=== PATIENT | female | born 1960 | race Caucasian/White ===

== ENCOUNTER 2021-07-27 18:21 | Emergency (ER) | payer BC, MEDICAID ==
[~2021-07-27] VITALS: Ht 149.9 cm; Wt 75.0 kg
[~2021-07-27 18:21] MED LIST: LIDOcaine 1% W/epiNEPHrine 1:100,000 20ml vial ONE
[2021-07-27] MEDS ORDERED: morphine 4 MG/ML inj SYRINge IV ONE ×2 (18:30→20:05)
[2021-07-27] MEDS ORDERED: ondansetron 4mg rapidly disintigrating tab PO ONE (18:30)
[2021-07-27] MEDS ORDERED: ondansetron/PF 4mg/2ml inj IV ONE (18:30)
[2021-07-27] MEDS ORDERED: acetaminophen 325mg tablet PO ONE (18:30)
[2021-07-27] MEDS ORDERED: ketorolac trometh. 30mg/ml inj. IV ONE (18:30)
[2021-07-27] MEDS ORDERED: propofol 10mg/ml 20ml vial IV ONE (19:45)
[2021-07-27 19:54] LABS: ALANINE AMINOTRANSFERASE 21 U/L (12-78); ALBUMIN/GLOBULIN RATIO 1.3 (1.1-1.5); ALKALINE PHOSPHATASE 82 IU/L (46-116); ANION GAP 11 (8-16); ASPARTATE AMINO TRANSFERASE 20 U/L (10-37); BILIRUBIN,TOTAL 0.2 MG/DL (0.1-1.0); BLOOD UREA NITROGEN 34 MG/DL (7-18); BUN/CREATININE RATIO 38.2 (6.6-38.0); CALCIUM 9.8 MG/DL (8.5-10.1); CHLORIDE 106 MMOL/L (99-107); CREATININE 0.89 MG/DL (0.40-0.90); GLUCOSE 113 MG/DL (70-104); POTASSIUM 4.4 MMOL/L (3.5-5.1); SODIUM 141 MMOL/L (135-145); TOTAL CARBON DIOXIDE 23.6 MMOL/L (24-32); TOTAL PROTEIN 7.2 G/DL (6.4-8.2); eGFR 64 ML/MIN
[2021-07-27 20:10] LABS: BASOPHILS # (AUTO) 0.1 X10'3 (0-0.2); EOSINOPHILS # (AUTO) 0.2 X10'3 (0-0.9); EOSINOPHILS % (AUTO) 1.3 % (0-6); HEMATOCRIT 38.2 % (35.0-45.0); HEMOGLOBIN 13.1 g/dl (12.0-16.0); LYMPHOCYTES % (AUTO) 24.8 % (21-51); MEAN CORPUSCULAR HEMOGLOBIN 28.3 PG (27.0-31.0); MEAN CORPUSCULAR HGB CONC 34.4 g/dL (33.0-36.5); MEAN CORPUSCULAR VOLUME 82.3 FL (78-98); MEAN PLATELET VOLUME 6.9 FL (7.4-10.4); MONOCYTES # (AUTO) 0.9 X10'3 (0-0.9); MONOCYTES % (AUTO) 7.8 % (2-12); NEUTROPHILS # (AUTO) 7.8 X10'3 (1.8-7.7); NEUTROPHILS % (AUTO) 65.1 % (42-75); PLATELET COUNT 270 X10'3 (140-440); RED BLOOD COUNT 4.64 X10'6 (4.20-5.60); RED CELL DISTRIBUTION WIDTH 12.8 % (11.5-14.5); WHITE BLOOD COUNT 11.9 X10'3 (4.5-11.0)
[2021-07-27] MEDS ORDERED: HYDR-3965 PO (20:43)
[2021-07-27 21:46] VITALS: BP 140/65
== END 2021-07-27 21:46 | disposition home or self-care (01) ==
LOC: ER 18:22
DX: S89.391A Other physeal fracture of lower end of right fibula, initial encounter for closed fracture (principal); S93.04XA Dislocation of right ankle joint, initial encounter; Z79.899 Other long term (current) drug therapy; W19.XXXA Unspecified fall, initial encounter; Y93.89 Activity, other specified; Y92.89 Other specified places as the place of occurrence of the external cause; Y99.8 Other external cause status
CPT/HCPCS: 20552; 27818; 36415; 73600; 73610; 80053; 85025; 93005; 94799; 96374; 96375; 96376; 99285; J1885; J2270; J2405; J3490; 94760

== ENCOUNTER 2021-08-19 09:22 | Inpatient (IN) | payer BC, MEDICAID ==
[2021-08-18 15:38] LABS: BASOPHILS # (AUTO) 0.1 X10'3 (0-0.2); EOSINOPHILS # (AUTO) 0.3 X10'3 (0-0.9); EOSINOPHILS % (AUTO) 2.7 % (0-6); LYMPHOCYTES # (AUTO) 2.5 X10'3 (1.1-4.8); LYMPHOCYTES % (AUTO) 24.5 % (21-51); MEAN CORPUSCULAR HEMOGLOBIN 27.4 PG (27.0-31.0); MEAN CORPUSCULAR HGB CONC 33.3 g/dL (33.0-36.5); MEAN CORPUSCULAR VOLUME 82.4 FL (78-98); MONOCYTES # (AUTO) 0.8 X10'3 (0-0.9); MONOCYTES % (AUTO) 8.1 % (2-12); NEUTROPHILS # (AUTO) 6.4 X10'3 (1.8-7.7); NEUTROPHILS % (AUTO) 63.7 % (42-75); PRE OP HEMATOCRIT 39.8 % (35.0-45.0); PRE OP HEMOGLOBIN 13.3 g/dL (12.0-16.0); PRE OP PLATELET COUNT 300 X10'3 (140-440); RED BLOOD COUNT 4.83 X10'6 (4.20-5.60); RED CELL DISTRIBUTION WIDTH 13.6 % (11.5-14.5)
[2021-08-18 16:01] LABS: ALANINE AMINOTRANSFERASE 21 U/L (12-78); ALBUMIN 3.8 G/DL (3.4-5.0); ALBUMIN/GLOBULIN RATIO 1.2 (1.1-1.5); ALKALINE PHOSPHATASE 82 IU/L (46-116); ANION GAP 9 (8-16); ASPARTATE AMINO TRANSFERASE 19 U/L (10-37); BILIRUBIN,TOTAL 0.3 MG/DL (0.1-1.0); BLOOD UREA NITROGEN 27 MG/DL (7-18); BUN/CREATININE RATIO 26.7 (6.6-38.0); CALCIUM 9.7 MG/DL (8.5-10.1); CHLORIDE 105 MMOL/L (99-107); CREATININE 1.01 MG/DL (0.40-0.90); GLUCOSE 120 MG/DL (70-104); POTASSIUM 4.1 MMOL/L (3.5-5.1); SODIUM 142 MMOL/L (135-145); TOTAL CARBON DIOXIDE 28.1 MMOL/L (24-32); TOTAL PROTEIN 6.9 G/DL (6.4-8.2); eGFR 56 ML/MIN
[~2021-08-19] VITALS: Ht 149.9 cm; Wt 81.3 kg
[2021-08-19] VITALS (18 sets, daily range): BP systolic 108–149; BP diastolic 56–83
[~2021-08-19 09:22] MED LIST changes: +ASPI-611 PO; +BACL10TA2 PO; +BUDE10.27; +CEPH500C82 PO; +CYCL1DRO2 EACHEYE; +DICL100G30 TOP; +DULO30CA52 PO; +HYDR-3686 PO; +HYDR-3965 PO; +HYDR-3973; +IBUP-1984 PO; +LEVO75TA7 PO; -LIDOcaine 1% W/epiNEPHrine 1:100,000 20ml vial ONE; +LOSA100T57 PO; +MECL-159 PO; +ROSU10TA28 PO; +albuterol 2.5 MG/3 ML nebule NEB ONE; +cefazolin/dext.iso 2gm/50ml IV ONE; +famotidine 20mg tablet PO ONE; +sevoflurane 250ml liquid IH ONE
[2021-08-19] MEDS: ringers solution, lacted 1,000 ML IV SCH (11:12)
[2021-08-19] MEDS ORDERED: fentaNYL/PF 50MCG/1 ML 2ML syringe ONE (12:15)
[2021-08-19] MEDS ORDERED: meperidine/PF 25mg/ml syringe IV PRN (12:25)
[2021-08-19] MEDS ORDERED: acetaminophen 1,000mg/100ml IV 100 ML IV PRN (12:25)
[2021-08-19] MEDS ORDERED: ringers solution, lacted 1,000 ML IV SCH (12:25)
[2021-08-19] MEDS ORDERED: HYDROmorphone/PF 0.2 MG/ML SYRINGE IV PRN ×2 (12:25)
[2021-08-19] MEDS ORDERED: labetalol 20mg/4ml (5mg/ml) syringe IV PRN (12:25)
[2021-08-19] MEDS ORDERED: morphine 4 MG/ML inj SYRINge IV PRN (12:25)
[2021-08-19] MEDS ORDERED: proCHLORperazine 10 MG/2 ml inj IV PRN (12:25)
[2021-08-19] MEDS ORDERED: ondansetron/PF 4mg/2ml inj IV PRN (12:25)
[2021-08-19] MEDS ORDERED: morphine 2 MG/ML inj. syringe IV PRN (12:25)
[2021-08-19] MEDS ORDERED: hydrALAZINE 20mg/ml inj. IV PRN (12:25)
[2021-08-19] MEDS ORDERED: ROPIVAcaine 0.2% (10 MG/5 ML) BOLUS INJECTION POPLITEAL PRN (12:30)
[2021-08-19] MEDS ORDERED: midazolam 1 mg/ML 2ml injection ONE (13:41)
[2021-08-19] MEDS ORDERED: ROPIVAcaine 0.5% (5mg/ml) 30ml vial ONE (14:03)
[2021-08-19] MEDS ORDERED: 0.9 % SODIUM CHLORIDE 10 ML VIAL ONE ×3 (14:03)
[2021-08-19] MEDS ORDERED: propofol inj 20 ML IV ONE (14:03)
[2021-08-19] MEDS ORDERED: LIDOcaine 2% (20mg/ml) 5ml vial ONE (14:04)
[2021-08-19] MEDS ORDERED: ePHEDrine 50MG/ML INJ. ONE (14:04)
[2021-08-19] MEDS ORDERED: dexamethasone sod phosphate 4mg/ml inj. ONE (14:05)
[2021-08-19] MEDS ORDERED: ondansetron/PF 4mg/2ml inj ONE (14:05)
[2021-08-19] MEDS ORDERED: bacitracin 15gm ointment TP ONE (15:22)
[2021-08-19] MEDS ORDERED: DICLOFENAC SODIUM TP PRN (16:05)
[2021-08-19] MEDS ORDERED: meclizine 12.5mg tablet PO PRN (16:05)
[2021-08-19] MEDS: ROPIVAcaine 0.2%/PF PUMP/bolus 545 ML POPLITEAL SCH (16:15)
--- NOTE | 2021-08-19 17:06 | NUR ---
Report called to receiving nurse. Transferred via BED Belongings . Special Issues communicated to receiving nurse.AWAKE AND ORIWENTED. VITALS STABLE. DRESSING DI. SHELL PAIN. TO SURGICAL RM 348B AT THIS TIME.
--- NOTE | 2021-08-19 17:10 | NUR ---
Received patient report from Heidy via phone patient will be transported up on a gurney. Will assume patient care when patient comes to the floor.
--- NOTE | 2021-08-19 17:30 | NUR ---
Received patient via gurney. Patient was able to scoot herself to hospital bed. Patients IV connected and running per MD orders. Call light given to patient bed in low position, Post op vitals started, Patient assisted to use the bedpan.
--- NOTE | 2021-08-19 19:11 | NUR ---
Problems reprioritized. Patient report given, questions answered & plan of care reviewed with Joyce Cook RN.
--- NOTE | 2021-08-19 19:15 | NUR ---
Patient in room [facility] 348. I have received report from STEVEN BENJAMIN and had the opportunity to ask questions and assume patient care.
[2021-08-19] MEDS ORDERED: non-formulary drug (Budesonide/Formoterol Fumarate (Budesonide-Formoterol 80-4.5) 2 PUFFS) SCH (20:00)
[2021-08-19] MEDS: albuterol 2.5 MG/3 ML nebule NEB SCH (20:45)
[2021-08-19] MEDS: budesonide 0.5mg/2ml UD nebule IH SCH (20:45)
[2021-08-19] MEDS: cephalexin 500mg capsule PO SCH (21:35)
[2021-08-19] MEDS: baclofen 10mg tablet PO SCH (21:36)
[2021-08-19] MEDS: atorvastatin 20mg tablet PO SCH (21:36)
[2021-08-19] MEDS: HYDROcodone/acetaminophen 10/325mg tab PO PRN (21:37)
[2021-08-19] MEDS: cycloSPORINE 0.05% ophthalmic emulsion EACHEYE SCH (21:37)
[2021-08-20] VITALS: BP 109/54
[2021-08-20] MEDS: HYDROcodone/acetaminophen 10/325mg tab PO PRN ×5 (01:53→21:33)
[2021-08-20] MEDS: ringers solution, lacted 1,000 ML IV SCH (01:54)
[2021-08-20] MEDS: albuterol 2.5 MG/3 ML nebule NEB SCH ×4 (02:48→20:53)
--- NOTE | 2021-08-20 04:41 | NUR ---
Problems reprioritized. Patient report given, questions answered & plan of care reviewed with PRUDENCE RN.
--- NOTE | 2021-08-20 05:33 | NUR ---
Patient in room [facility] 348. I have received report from MIKAL REN RN and had the opportunity to ask questions and assume patient care.
--- NOTE | 2021-08-20 06:33 | NUR ---
Problems reprioritized. Patient report given, questions answered & plan of care reviewed with MARTHA BENJAMIN.
[2021-08-20] MEDS: cephalexin 500mg capsule PO SCH ×2 (07:45→20:10)
[2021-08-20] MEDS: baclofen 10mg tablet PO SCH ×3 (07:46→20:11)
[2021-08-20] MEDS: aspirin 81mg, enteric-coated 1 TAB TABLET.DR PO SCH (07:46)
[2021-08-20] MEDS: losartan 50mg tablet PO SCH (07:47)
[2021-08-20] MEDS: levoTHYROXINE 75mcg tablet PO SCH (07:47)
[2021-08-20] MEDS: duloxetine 30mg CAPSULE.DR PO SCH (07:48)
[2021-08-20] MEDS: cycloSPORINE 0.05% ophthalmic emulsion EACHEYE SCH ×2 (07:50→20:00)
[2021-08-20 08:00] VITALS: BP 140/67
[2021-08-20] MEDS: budesonide 0.5mg/2ml UD nebule IH SCH ×2 (08:13→20:53)
[2021-08-20 11:07] VITALS: BP 108/55
[2021-08-20] MEDS ORDERED: magnesium 4gm in 100ml NS 100 ML IV PRN (12:25)
[2021-08-20] MEDS ORDERED: magnesium Cl slow-release 64mg tablet PO PRN (12:25)
[2021-08-20] MEDS ORDERED: potassium Cl 40MEQ/1/2NS 520ml 520 ML IV PRN (12:25)
[2021-08-20] MEDS ORDERED: potassium Cl 20 mEq SR tablet PO PRN ×2 (12:25)
[2021-08-20] MEDS: K and/or MAG REPLACEMENT MC SCH (20:00)
[2021-08-20] MEDS: atorvastatin 20mg tablet PO SCH (20:11)
[2021-08-21] VITALS: BP 132/60
[2021-08-21] MEDS: albuterol 2.5 MG/3 ML nebule NEB SCH ×4 (02:31→20:55)
[2021-08-21] MEDS: HYDROcodone/acetaminophen 10/325mg tab PO PRN ×3 (02:49→19:20)
[2021-08-21] MEDS: morphine 2 MG/ML inj. syringe IV PRN ×2 (03:44→07:51)
[2021-08-21 06:36] LABS: BASOPHILS % (AUTO) 0.4 % (0-1); EOSINOPHILS % (AUTO) 0.4 % (0-6); HEMATOCRIT 32.5 % (35.0-45.0); HEMOGLOBIN 10.9 g/dl (12.0-16.0); LYMPHOCYTES # (AUTO) 3.3 X10'3 (1.1-4.8); MEAN CORPUSCULAR HEMOGLOBIN 27.8 PG (27.0-31.0); MEAN CORPUSCULAR HGB CONC 33.6 g/dL (33.0-36.5); MEAN CORPUSCULAR VOLUME 82.8 FL (78-98); MONOCYTES # (AUTO) 1.3 X10'3 (0-0.9); MONOCYTES % (AUTO) 10.6 % (2-12); NEUTROPHILS # (AUTO) 7.5 X10'3 (1.8-7.7); NEUTROPHILS % (AUTO) 61.6 % (42-75); PLATELET COUNT 230 X10'3 (140-440); RED BLOOD COUNT 3.93 X10'6 (4.20-5.60); RED CELL DISTRIBUTION WIDTH 13.6 % (11.5-14.5); WHITE BLOOD COUNT 12.2 X10'3 (4.5-11.0)
--- NOTE | 2021-08-21 06:40 | NUR ---
Problems reprioritized. Patient report given, questions answered & plan of care reviewed with SOURAV Bazan.
[2021-08-21 07:00] VITALS: BP 152/73
[2021-08-21 07:01] LABS: ALANINE AMINOTRANSFERASE 15 U/L (12-78); ALBUMIN 3.1 G/DL (3.4-5.0); ALBUMIN/GLOBULIN RATIO 1.1 (1.1-1.5); ALKALINE PHOSPHATASE 67 IU/L (46-116); ANION GAP 7 (8-16); ASPARTATE AMINO TRANSFERASE 20 U/L (10-37); BILIRUBIN,TOTAL 0.3 MG/DL (0.1-1.0); BLOOD UREA NITROGEN 23 MG/DL (7-18); BUN/CREATININE RATIO 26.4 (6.6-38.0); CALCIUM 8.9 MG/DL (8.5-10.1); CHLORIDE 107 MMOL/L (99-107); CREATININE 0.87 MG/DL (0.40-0.90); GLUCOSE 102 MG/DL (70-104); MAGNESIUM 2.2 MG/DL (1.5-2.4); PHOSPHORUS 2.9 MG/DL (2.3-4.5); POTASSIUM 4.3 MMOL/L (3.5-5.1); SODIUM 141 MMOL/L (135-145); TOTAL CARBON DIOXIDE 27.3 MMOL/L (24-32); TOTAL PROTEIN 5.9 G/DL (6.4-8.2); eGFR 66 ML/MIN
[2021-08-21] MEDS: budesonide 0.5mg/2ml UD nebule IH SCH ×2 (07:18→20:55)
[2021-08-21] MEDS: ROPIVAcaine 0.2%/PF PUMP/bolus 545 ML POPLITEAL SCH (07:42)
[2021-08-21] MEDS: baclofen 10mg tablet PO SCH ×3 (07:45→20:28)
[2021-08-21] MEDS: losartan 50mg tablet PO SCH (07:45)
[2021-08-21] MEDS: duloxetine 30mg CAPSULE.DR PO SCH (07:45)
[2021-08-21] MEDS: aspirin 81mg, enteric-coated 1 TAB TABLET.DR PO SCH (07:45)
[2021-08-21] MEDS: cephalexin 500mg capsule PO SCH ×2 (07:45→19:21)
[2021-08-21] MEDS: levoTHYROXINE 75mcg tablet PO SCH (07:45)
[2021-08-21] MEDS: heparin, porcine 5000 units/ml vial SQ SCH ×2 (07:46→19:21)
[2021-08-21] MEDS: K and/or MAG REPLACEMENT MC SCH ×2 (08:00→20:00)
[2021-08-21] MEDS: cycloSPORINE 0.05% ophthalmic emulsion EACHEYE SCH ×2 (09:58→19:22)
[2021-08-21 11:00] VITALS: BP 137/78
[2021-08-21 20:00] VITALS: BP 133/77
[2021-08-21] MEDS: atorvastatin 20mg tablet PO SCH (20:28)
[2021-08-22] VITALS: BP 134/73
[2021-08-22] MEDS: HYDROcodone/acetaminophen 10/325mg tab PO PRN ×3 (00:21→19:07)
[2021-08-22] MEDS: hydrOXYzine 25 MG tablet PO PRN ×2 (00:23→22:52)
[2021-08-22] MEDS: albuterol 2.5 MG/3 ML nebule NEB SCH ×3 (02:22→20:25)
[2021-08-22 06:35] LABS: BASOPHILS # (AUTO) 0.1 X10'3 (0-0.2); BASOPHILS % (AUTO) 0.8 % (0-1); EOSINOPHILS # (AUTO) 0.2 X10'3 (0-0.9); EOSINOPHILS % (AUTO) 1.7 % (0-6); HEMATOCRIT 36.5 % (35.0-45.0); HEMOGLOBIN 12.2 g/dl (12.0-16.0); LYMPHOCYTES # (AUTO) 3.6 X10'3 (1.1-4.8); LYMPHOCYTES % (AUTO) 36.7 % (21-51); MEAN CORPUSCULAR HEMOGLOBIN 27.6 PG (27.0-31.0); MEAN CORPUSCULAR HGB CONC 33.4 g/dL (33.0-36.5); MEAN CORPUSCULAR VOLUME 82.6 FL (78-98); MONOCYTES % (AUTO) 10.3 % (2-12); NEUTROPHILS # (AUTO) 4.9 X10'3 (1.8-7.7); NEUTROPHILS % (AUTO) 50.5 % (42-75); PLATELET COUNT 242 X10'3 (140-440); RED BLOOD COUNT 4.42 X10'6 (4.20-5.60); RED CELL DISTRIBUTION WIDTH 13.5 % (11.5-14.5); WHITE BLOOD COUNT 9.7 X10'3 (4.5-11.0)
[2021-08-22 07:00] VITALS: BP 159/76
[2021-08-22 07:04] LABS: ALANINE AMINOTRANSFERASE 16 U/L (12-78); ALBUMIN 3.1 G/DL (3.4-5.0); ALBUMIN/GLOBULIN RATIO 0.9 (1.1-1.5); ALKALINE PHOSPHATASE 72 IU/L (46-116); ANION GAP 4 (8-16); ASPARTATE AMINO TRANSFERASE 24 U/L (10-37); BILIRUBIN,TOTAL 0.4 MG/DL (0.1-1.0); BLOOD UREA NITROGEN 16 MG/DL (7-18); BUN/CREATININE RATIO 19.5 (6.6-38.0); CALCIUM 9.2 MG/DL (8.5-10.1); CHLORIDE 107 MMOL/L (99-107); CREATININE 0.82 MG/DL (0.40-0.90); GLUCOSE 93 MG/DL (70-104); MAGNESIUM 2.1 MG/DL (1.5-2.4); PHOSPHORUS 3.8 MG/DL (2.3-4.5); POTASSIUM 4.2 MMOL/L (3.5-5.1); SODIUM 142 MMOL/L (135-145); TOTAL CARBON DIOXIDE 30.7 MMOL/L (24-32); TOTAL PROTEIN 6.4 G/DL (6.4-8.2); eGFR 71 ML/MIN
[2021-08-22] MEDS: budesonide 0.5mg/2ml UD nebule IH SCH ×2 (07:30→20:24)
[2021-08-22] MEDS: duloxetine 30mg CAPSULE.DR PO SCH (07:44)
[2021-08-22] MEDS: cycloSPORINE 0.05% ophthalmic emulsion EACHEYE SCH ×2 (07:44→19:08)
[2021-08-22] MEDS: cephalexin 500mg capsule PO SCH ×2 (07:44→19:06)
[2021-08-22] MEDS: baclofen 10mg tablet PO SCH ×3 (07:45→22:52)
[2021-08-22] MEDS: levoTHYROXINE 75mcg tablet PO SCH (07:45)
[2021-08-22] MEDS: aspirin 81mg, enteric-coated 1 TAB TABLET.DR PO SCH (07:45)
[2021-08-22] MEDS: heparin, porcine 5000 units/ml vial SQ SCH ×2 (07:46→19:05)
[2021-08-22] MEDS: losartan 50mg tablet PO SCH (08:32)
[2021-08-22] MEDS: ROPIVAcaine 0.2%/PF PUMP/bolus 545 ML POPLITEAL SCH (09:31)
[2021-08-22 11:00] VITALS: BP 131/67
[2021-08-22 20:00] VITALS: BP 153/81
[2021-08-22] MEDS: K and/or MAG REPLACEMENT MC SCH (20:00)
[2021-08-22] MEDS: atorvastatin 20mg tablet PO SCH (22:52)
[2021-08-23] VITALS: BP 131/64
[2021-08-23] MEDS: albuterol 2.5 MG/3 ML nebule NEB SCH ×4 (02:29→20:55)
[2021-08-23] MEDS: HYDROcodone/acetaminophen 10/325mg tab PO PRN ×3 (05:25→20:18)
[2021-08-23 06:08] LABS: BASOPHILS # (AUTO) 0.1 X10'3 (0-0.2); BASOPHILS % (AUTO) 0.8 % (0-1); EOSINOPHILS # (AUTO) 0.3 X10'3 (0-0.9); EOSINOPHILS % (AUTO) 2.6 % (0-6); HEMATOCRIT 37.4 % (35.0-45.0); HEMOGLOBIN 12.6 g/dl (12.0-16.0); LYMPHOCYTES # (AUTO) 3.5 X10'3 (1.1-4.8); LYMPHOCYTES % (AUTO) 34.5 % (21-51); MEAN CORPUSCULAR HEMOGLOBIN 27.7 PG (27.0-31.0); MEAN CORPUSCULAR HGB CONC 33.8 g/dL (33.0-36.5); MEAN CORPUSCULAR VOLUME 82.1 FL (78-98); MEAN PLATELET VOLUME 6.8 FL (7.4-10.4); MONOCYTES % (AUTO) 9.7 % (2-12); NEUTROPHILS # (AUTO) 5.3 X10'3 (1.8-7.7); NEUTROPHILS % (AUTO) 52.4 % (42-75); PLATELET COUNT 265 X10'3 (140-440); RED BLOOD COUNT 4.55 X10'6 (4.20-5.60); RED CELL DISTRIBUTION WIDTH 13.6 % (11.5-14.5); WHITE BLOOD COUNT 10.1 X10'3 (4.5-11.0)
[2021-08-23 06:19] LABS: ALANINE AMINOTRANSFERASE 16 U/L (12-78); ALBUMIN 3.1 G/DL (3.4-5.0); ALKALINE PHOSPHATASE 77 IU/L (46-116); ANION GAP 6 (8-16); ASPARTATE AMINO TRANSFERASE 18 U/L (10-37); BILIRUBIN,TOTAL 0.4 MG/DL (0.1-1.0); BLOOD UREA NITROGEN 24 MG/DL (7-18); BUN/CREATININE RATIO 21.4 (6.6-38.0); CALCIUM 9.7 MG/DL (8.5-10.1); CHLORIDE 105 MMOL/L (99-107); CREATININE 1.12 MG/DL (0.40-0.90); GLUCOSE 97 MG/DL (70-104); MAGNESIUM 2.3 MG/DL (1.5-2.4); PHOSPHORUS 4.7 MG/DL (2.3-4.5); POTASSIUM 4.5 MMOL/L (3.5-5.1); SODIUM 141 MMOL/L (135-145); TOTAL CARBON DIOXIDE 29.9 MMOL/L (24-32); TOTAL PROTEIN 6.3 G/DL (6.4-8.2); eGFR 49 ML/MIN
--- NOTE | 2021-08-23 06:37 | NUR ---
Report given to James BENJAMIN
--- NOTE | 2021-08-23 06:53 | NUR ---
Patient in room [facility] 348. I have received report from Nida BENJAMIN and had the opportunity to ask questions and assume patient care.
[2021-08-23 07:41] VITALS: BP 152/75
[2021-08-23] MEDS: K and/or MAG REPLACEMENT MC SCH ×2 (08:00→20:00)
[2021-08-23] MEDS: duloxetine 30mg CAPSULE.DR PO SCH (08:29)
[2021-08-23] MEDS: levoTHYROXINE 75mcg tablet PO SCH (08:29)
[2021-08-23] MEDS: cephalexin 500mg capsule PO SCH ×2 (08:30→20:12)
[2021-08-23] MEDS: losartan 50mg tablet PO SCH (08:30)
[2021-08-23] MEDS: baclofen 10mg tablet PO SCH ×3 (08:30→20:12)
[2021-08-23] MEDS: aspirin 81mg, enteric-coated 1 TAB TABLET.DR PO SCH (08:30)
[2021-08-23] MEDS: heparin, porcine 5000 units/ml vial SQ SCH ×2 (08:31→20:13)
[2021-08-23] MEDS: cycloSPORINE 0.05% ophthalmic emulsion EACHEYE SCH ×2 (08:34→20:14)
[2021-08-23] MEDS: budesonide 0.5mg/2ml UD nebule IH SCH ×2 (09:15→20:55)
--- NOTE | 2021-08-23 10:34 | NUR ---
Initial: Pt admit dx right ankle fracture; underwent ORIF 08/19 per EMR. PO intake ~89% of heart healthy meals, meeting nutritional needs. LBM 08/18, could benefit from bowel care per rx. No nutrition intervention at this time. Will continue to monitor. Recommendations: 1. Continue heart healthy diet as tolerated 2. Bowel care per rx 3. Weekly wt Addendum: 08/23/21 at 1034 by Nathan Anthony [employer] Supervisor RD Amended: Links added. Addendum: 08/23/21 at [address] I have reviewed note by product management intern
[2021-08-23 12:32] VITALS: BP 108/70
[2021-08-23] MEDS: ROPIVAcaine 0.2%/PF PUMP/bolus 545 ML POPLITEAL SCH (13:00)
[2021-08-23 18:00] VITALS: BP 110/70
--- NOTE | 2021-08-23 18:15 | NUR ---
Problems reprioritized. Patient report given, questions answered & plan of care reviewed with Nida BENJAMIN.
[2021-08-23] MEDS: atorvastatin 20mg tablet PO SCH (20:12)
[2021-08-23 23:34] VITALS: BP 149/63
[2021-08-23] MEDS: hydrOXYzine 25 MG tablet PO PRN (23:44)
[2021-08-24] MEDS: albuterol 2.5 MG/3 ML nebule NEB SCH ×3 (02:43→20:30)
[2021-08-24] MEDS: HYDROcodone/acetaminophen 10/325mg tab PO PRN ×3 (05:52→20:41)
[2021-08-24 06:18] LABS: BASOPHILS # (AUTO) 0.1 X10'3 (0-0.2); BASOPHILS % (AUTO) 0.8 % (0-1); EOSINOPHILS # (AUTO) 0.3 X10'3 (0-0.9); EOSINOPHILS % (AUTO) 2.8 % (0-6); HEMATOCRIT 39.7 % (35.0-45.0); HEMOGLOBIN 13.1 g/dl (12.0-16.0); LYMPHOCYTES # (AUTO) 3.5 X10'3 (1.1-4.8); LYMPHOCYTES % (AUTO) 31.1 % (21-51); MEAN CORPUSCULAR HEMOGLOBIN 27.4 PG (27.0-31.0); MEAN CORPUSCULAR HGB CONC 32.9 g/dL (33.0-36.5); MEAN CORPUSCULAR VOLUME 83.1 FL (78-98); MEAN PLATELET VOLUME 7.1 FL (7.4-10.4); MONOCYTES # (AUTO) 0.9 X10'3 (0-0.9); MONOCYTES % (AUTO) 7.9 % (2-12); NEUTROPHILS # (AUTO) 6.5 X10'3 (1.8-7.7); NEUTROPHILS % (AUTO) 57.4 % (42-75); PLATELET COUNT 318 X10'3 (140-440); RED BLOOD COUNT 4.78 X10'6 (4.20-5.60); RED CELL DISTRIBUTION WIDTH 13.5 % (11.5-14.5); WHITE BLOOD COUNT 11.3 X10'3 (4.5-11.0)
--- NOTE | 2021-08-24 06:22 | NUR ---
HAND OFF REPORT GIVEN TO SUJATHA RN Addendum: 08/24/21 at 0625 by Nida Bond RN HAND OFF REPORT GIVEN TO MARY BENJAMIN
[2021-08-24 06:41] LABS: ALANINE AMINOTRANSFERASE 18 U/L (12-78); ALBUMIN 3.4 G/DL (3.4-5.0); ALBUMIN/GLOBULIN RATIO 0.9 (1.1-1.5); ALKALINE PHOSPHATASE 83 IU/L (46-116); ANION GAP 10 (8-16); ASPARTATE AMINO TRANSFERASE 19 U/L (10-37); BILIRUBIN,TOTAL 0.4 MG/DL (0.1-1.0); BLOOD UREA NITROGEN 27 MG/DL (7-18); BUN/CREATININE RATIO 27.6 (6.6-38.0); CALCIUM 9.8 MG/DL (8.5-10.1); CHLORIDE 103 MMOL/L (99-107); CREATININE 0.98 MG/DL (0.40-0.90); GLUCOSE 96 MG/DL (70-104); MAGNESIUM 2.2 MG/DL (1.5-2.4); PHOSPHORUS 4.9 MG/DL (2.3-4.5); POTASSIUM 4.5 MMOL/L (3.5-5.1); SODIUM 140 MMOL/L (135-145); TOTAL CARBON DIOXIDE 27.5 MMOL/L (24-32); TOTAL PROTEIN 7.2 G/DL (6.4-8.2); eGFR 58 ML/MIN
[2021-08-24 07:00] VITALS: BP 148/62
[2021-08-24] MEDS: K and/or MAG REPLACEMENT MC SCH ×2 (08:00→20:00)
[2021-08-24] MEDS: budesonide 0.5mg/2ml UD nebule IH SCH ×2 (08:20→20:30)
[2021-08-24] MEDS: levoTHYROXINE 75mcg tablet PO SCH (08:42)
[2021-08-24] MEDS: duloxetine 30mg CAPSULE.DR PO SCH (08:42)
[2021-08-24] MEDS: cycloSPORINE 0.05% ophthalmic emulsion EACHEYE SCH ×2 (08:42→20:42)
[2021-08-24] MEDS: cephalexin 500mg capsule PO SCH ×2 (08:42→20:40)
[2021-08-24] MEDS: losartan 50mg tablet PO SCH (08:42)
[2021-08-24] MEDS: baclofen 10mg tablet PO SCH ×3 (08:43→20:41)
[2021-08-24] MEDS: aspirin 81mg, enteric-coated 1 TAB TABLET.DR PO SCH (08:43)
[2021-08-24] MEDS: heparin, porcine 5000 units/ml vial SQ SCH ×2 (08:48→20:41)
[2021-08-24 11:00] VITALS: BP 141/66
--- NOTE | 2021-08-24 13:17 | NUR ---
Paged Case Management: Surgical Hortensia RN ext [phone] RE: Radha Krishna. We need knee scooter and front wheel walker per AUGUSTUS Newell
--- NOTE | 2021-08-24 13:50 | NUR ---
Pulled out the catheter that was connected to the OnQ ball without any issue, patient tolerated well. Puncture hole looks good, no sign of infection, covered with band aid
[2021-08-24 18:00] VITALS: BP 130/66
[2021-08-24] MEDS: atorvastatin 20mg tablet PO SCH (20:40)
[2021-08-25] VITALS: BP 121/58
[2021-08-25] MEDS: albuterol 2.5 MG/3 ML nebule NEB SCH ×4 (02:32→19:53)
[2021-08-25 06:43] LABS: BASOPHILS # (AUTO) 0.1 X10'3 (0-0.2); EOSINOPHILS # (AUTO) 0.3 X10'3 (0-0.9); EOSINOPHILS % (AUTO) 3.8 % (0-6); HEMATOCRIT 34.9 % (35.0-45.0); HEMOGLOBIN 11.8 g/dl (12.0-16.0); LYMPHOCYTES # (AUTO) 2.5 X10'3 (1.1-4.8); LYMPHOCYTES % (AUTO) 30.5 % (21-51); MEAN CORPUSCULAR HEMOGLOBIN 27.8 PG (27.0-31.0); MEAN CORPUSCULAR VOLUME 81.9 FL (78-98); MEAN PLATELET VOLUME 6.8 FL (7.4-10.4); MONOCYTES # (AUTO) 0.7 X10'3 (0-0.9); NEUTROPHILS # (AUTO) 4.6 X10'3 (1.8-7.7); NEUTROPHILS % (AUTO) 55.7 % (42-75); PLATELET COUNT 290 X10'3 (140-440); RED BLOOD COUNT 4.26 X10'6 (4.20-5.60); RED CELL DISTRIBUTION WIDTH 13.6 % (11.5-14.5); WHITE BLOOD COUNT 8.3 X10'3 (4.5-11.0)
[2021-08-25 06:51] LABS: ALANINE AMINOTRANSFERASE 19 U/L (12-78); ALBUMIN 3.1 G/DL (3.4-5.0); ALBUMIN/GLOBULIN RATIO 0.9 (1.1-1.5); ALKALINE PHOSPHATASE 75 IU/L (46-116); ANION GAP 7 (8-16); ASPARTATE AMINO TRANSFERASE 23 U/L (10-37); BILIRUBIN,TOTAL 0.4 MG/DL (0.1-1.0); BLOOD UREA NITROGEN 22 MG/DL (7-18); BUN/CREATININE RATIO 27.8 (6.6-38.0); CALCIUM 9.4 MG/DL (8.5-10.1); CHLORIDE 108 MMOL/L (99-107); CREATININE 0.79 MG/DL (0.40-0.90); GLUCOSE 98 MG/DL (70-104); MAGNESIUM 2.1 MG/DL (1.5-2.4); PHOSPHORUS 3.9 MG/DL (2.3-4.5); POTASSIUM 4.2 MMOL/L (3.5-5.1); SODIUM 140 MMOL/L (135-145); TOTAL PROTEIN 6.4 G/DL (6.4-8.2); eGFR 74 ML/MIN
[2021-08-25] MEDS: HYDROcodone/acetaminophen 10/325mg tab PO PRN ×3 (06:51→20:03)
[2021-08-25] MEDS: ibuprofen tablet 400 MG TABLET PO PRN (06:51)
[2021-08-25] MEDS: K and/or MAG REPLACEMENT MC SCH ×2 (08:00→20:00)
[2021-08-25 08:32] VITALS: BP 146/72
[2021-08-25] MEDS: budesonide 0.5mg/2ml UD nebule IH SCH ×2 (09:46→19:53)
[2021-08-25] MEDS: cephalexin 500mg capsule PO SCH ×2 (10:30→20:04)
[2021-08-25] MEDS: losartan 50mg tablet PO SCH (10:31)
[2021-08-25] MEDS: levoTHYROXINE 75mcg tablet PO SCH (10:31)
[2021-08-25] MEDS: duloxetine 30mg CAPSULE.DR PO SCH (10:31)
[2021-08-25] MEDS: baclofen 10mg tablet PO SCH ×3 (10:31→20:06)
[2021-08-25] MEDS: aspirin 81mg, enteric-coated 1 TAB TABLET.DR PO SCH (10:31)
[2021-08-25] MEDS: heparin, porcine 5000 units/ml vial SQ SCH ×2 (10:32→20:05)
[2021-08-25] MEDS: morphine 2 MG/ML inj. syringe IV PRN (10:36)
[2021-08-25] MEDS: cycloSPORINE 0.05% ophthalmic emulsion EACHEYE SCH ×2 (10:37→20:07)
[2021-08-25 12:00] VITALS: BP 125/65
[2021-08-25 18:00] VITALS: BP 128/64
--- NOTE | 2021-08-25 18:19 | NUR ---
Gave report to Nida BENJAMIN.
[2021-08-25] MEDS: atorvastatin 20mg tablet PO SCH (20:04)
[2021-08-26] VITALS: BP 129/60
[2021-08-26] MEDS: albuterol 2.5 MG/3 ML nebule NEB SCH ×2 (03:52→07:24)
--- NOTE | 2021-08-26 06:41 | NUR ---
Report given to erica BENJAMIN
[2021-08-26] MEDS: budesonide 0.5mg/2ml UD nebule IH SCH (07:24)
[2021-08-26] MEDS: duloxetine 30mg CAPSULE.DR PO SCH (07:26)
[2021-08-26] MEDS: ibuprofen tablet 400 MG TABLET PO PRN ×2 (07:26→15:58)
[2021-08-26] MEDS: losartan 50mg tablet PO SCH (07:26)
[2021-08-26] MEDS: levoTHYROXINE 75mcg tablet PO SCH (07:26)
[2021-08-26] MEDS: cephalexin 500mg capsule PO SCH (07:26)
[2021-08-26] MEDS: baclofen 10mg tablet PO SCH ×2 (07:26→12:25)
[2021-08-26] MEDS: aspirin 81mg, enteric-coated 1 TAB TABLET.DR PO SCH (07:26)
[2021-08-26] MEDS: K and/or MAG REPLACEMENT MC SCH (07:27)
[2021-08-26] MEDS: HYDROcodone/acetaminophen 10/325mg tab PO PRN ×2 (07:27→12:27)
[2021-08-26] MEDS: heparin, porcine 5000 units/ml vial SQ SCH (07:27)
[2021-08-26] MEDS: cycloSPORINE 0.05% ophthalmic emulsion EACHEYE SCH (07:27)
[2021-08-26 08:00] VITALS: BP 125/51
[2021-08-26] MEDS ORDERED: ondansetron/PF 4mg/2ml inj IV PRN (09:35)
--- NOTE | 2021-08-26 10:44 | NUR ---
Paged PT. CM unsure what DME pt. needs. PT stated they saw pt. yesterday but no note? Pt. doing well moving around in room with just FWW, however Ortho MD note requesting socrates and walker and PT note requesting nixon, socrates and w/c. PT needs to see pt. today before DC.
--- NOTE | 2021-08-26 10:49 | NUR ---
Spoke w/ Esme in PT. She is aware documentation for yesterdays PT session needs to be completed as well a note of specific DME recommendation for discharge.
--- NOTE | 2021-08-26 11:00 | NUR ---
Called Erwin. She is ok with discharge. F/u with Merrill in 1-2 weeks. She states pt. has gravel in front of stairs and will need either w/c or scooter to bypass this gravel. She will also need a walker. Spoke to Cm. states insurance will only cover 1. PT Paged that w/c needs to be covered by insurance and walker can be bought by private pay. Spoke with PT. she states her friends can help her buy a walker and she would rather have a w/c provided. She also has crutches available to her while waiting to get a walker. Will speak with PT and request for them to work with pt . with crutches.
[2021-08-26 11:10] VITALS: BP 129/64
--- NOTE | 2021-08-26 14:25 | NUR ---
Erwin now has a PT note that will qualify her for a w/c for home. ERWIN is working on getting insurance to authorize and send w/c. Pt. states she has no way to get home. Partnership ride option per ERWIN. Will call to arrange ride once w/c in place.
--- NOTE | 2021-08-26 14:30 | NUR ---
Pt. states roommate and roommate's male friend will assist her into home.
--- NOTE | 2021-08-26 15:01 | NUR ---
Spoke with MD Momin about pt's discharge. He is ok with it and provided discharge care orders. See discharge instructions. Called Merrill's office. Pt. has f/u appointment scheduled for Sunday at 2pm already.
--- NOTE | 2021-08-26 15:57 | NUR ---
W/c delivered by Bernie to pt's room.
--- NOTE | 2021-08-26 16:06 | NUR ---
Spoke with Sariah medina's roomate. 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 She even has a walker for pt. at home. alumnae secretary arranging ride at this time.
--- NOTE | 2021-08-26 17:33 | NUR ---
Tomás called for pt. to go home
--- NOTE | 2021-08-26 17:55 | NUR ---
DISCHARGE NOTE: Reviewed discharge paperwork with pt. Written and verbal education provided on fall prevention, walker and w/c use, and cast care. Pt. aware of f/u ellyn. IV DC'd cannula intact. She left with all her belongings. She has contact information for Merrill's office and already has pain medication at home. W/c left with her. Escorted to taxi to go home by hospital staff.
--- NOTE | 2021-08-26 18:43 | NUR ---
Pt.'s support and contact at home called hospital from private number stating she was in ER and her defibrillator went off 4 times. There is no one at the trailer to accept and assist pt. Called [employer]. Pt. is in transit back to the hospital and will make her way back up here through the ER.
== END 2021-08-26 17:45 | disposition home or self-care (01) | DRG 494 ==
LOC: PAS 09:22 → SUR 3N 15:18 → PAS 17:30 → SUR 3N 17:30 → PAS 08-21 02:17 → SUR 3N 08-21 02:17 → UNDOADMIN 08-21 02:23 → UNDODISIN 08-26 17:45
PROVIDERS: ADMIT Podiatrist Foot & Ankle Surgery; ATTEND Podiatrist Foot & Ankle Surgery
PROC: 0QSG04Z Reposition Right Tibia with Internal Fixation Device, Open Approach (ICD-10-PCS; 2021-08-19)
PROC: 0QSJ04Z Reposition Right Fibula with Internal Fixation Device, Open Approach (ICD-10-PCS; principal; 2021-08-19 12:52)
DX: S82.871A Displaced pilon fracture of right tibia, initial encounter for closed fracture (principal); S82.831A Other fracture of upper and lower end of right fibula, initial encounter for closed fracture; F17.200 Nicotine dependence, unspecified, uncomplicated; E78.5 Hyperlipidemia, unspecified; E03.9 Hypothyroidism, unspecified; I10 Essential (primary) hypertension; Z20.822 Contact with and (suspected) exposure to COVID-19; G89.4 Chronic pain syndrome; F41.1 Generalized anxiety disorder; J44.9 Chronic obstructive pulmonary disease, unspecified; W18.39XA Other fall on same level, initial encounter; Y93.89 Activity, other specified; Y92.89 Other specified places as the place of occurrence of the external cause; Y99.8 Other external cause status; Z71.6 Tobacco abuse counseling; Z79.899 Other long term (current) drug therapy; Z90.710 Acquired absence of both cervix and uterus; Z90.49 Acquired absence of other specified parts of digestive tract
CPT/HCPCS: 36415; 73600; 76000; 80053; 82948; 83735; 84100; 84443; 85025; 87635; 93005; 94640; 94760; 97110; 97116; 97161; 97530; C9803; G0378; J0690; J1100; J1644; J2250; J2270; J2405; J2704; J2795; J3010; J3490; J7120; Q0177